=== PATIENT | male | born 1985 | race Caucasian/White ===

== ENCOUNTER → 2021-09-29 | Outpatient (CLI) | payer BC ==
[~2021-09-29] MED LIST: PROVENTIL0.09 MG/A1 IH
[2021-09-29 19:03] LABS: ALBUMIN 4.2 g/dL (3.5-5.0); POTASSIUM 3.9 mmol/L (3.5-5.1)
[2021-09-29 19:06] LABS: TOTAL PROTEIN 6.5 g/dL (6.4-8.3)
[2021-09-29 19:07] LABS: TOTAL BILIRUBIN 0.5 mg/dL (0.2-1.2)
== END ==
LOC: LAB 18:26
PROVIDERS: Nurse Practitioner Family
DX: U07.1 COVID-19 (principal)